=== PATIENT | male | born 1985 | race Caucasian/White ===

== ENCOUNTER 2022-06-02 08:56 | Inpatient (IN) ==
[2022-06-02] MEDS ORDERED: ONDANSETRON 4 MG/2 ML VIAL IV STA (09:30)
[2022-06-02 09:42] LABS: Basophils % 0.3 % (0.0-0.8); Eosinophils # 0.1 10*3/uL (0.0-0.87); Eosinophils % 1.1 % (0.00-10.9); Hematocrit 47.7 VOL% (42.0-52.0); Hemoglobin 16.4 GM/DL (14.0-18.0); Immature Granulocytes % 0.7 %; Immature Granulocytes Absolute 0.08 #; Lymphocytes # 2.1 10*3/uL (1.4-4.0); Lymphocytes % 19.1 % (21.2-54.2); Mean Corpuscular HGB Conc 34.4 GM/DL (32-36); Mean Corpuscular Volume 90.5 FL (87-102); Mean Platelet Volume 9.9 FL (9.6-12.0); Monocytes # 0.7 10*3/uL (0.11-0.8); Monocytes % 6.5 % (1.7-12.7); Neutrophils % 72.3 % (38.7-73.9); Platelet Count 251 T/CUMM (130-400); Red Blood Count 5.27 MC/CUMM (3.8-5.5); Red Cell Distribution Width 12.7 % (9.3-17.3); White Blood Count 10.8 T/CUMM (4-12)
[2022-06-02 10:13] LABS: Albumin 3.9 G/DL (3.4-5.0); Bilirubin,Total 0.9 MG/DL (0.20-1.00); Calcium 9.4 MG/DL (8.5-10.1); Osmolality,Calculated 275.7 MOS/KG (273-304); Potassium 3.9 MMOL/L (3.5-5.1); Total Protein 7.8 G/DL (6.4-8.2)
[2022-06-02 11:10] LABS: Protein,Urine Negative (Negative); Urine Appearance Clear (Clear); Urine Color Yellow (Yellow)
[2022-06-02 11:11] LABS: Bilirubin,Urine Negative (Negative); Blood, Urine Negative (Negative); Glucose,Urine (UA) Negative (Negative); Ketones,Urine Negative (Negative); Nitrite,Urine Negative (Negative); Urine Urobilinogen 0.2 eU/dL (<2.0)
[2022-06-02 11:19] LABS: Mucus,Urine Occasional /LPF (Occasional); RBC,Urine 1 /HPF (0-4)
[2022-06-02] MEDS ORDERED: TISSUE ADHESIVE 1 EACH APPLICATOR TOP ONE (12:19)
[2022-06-02] MEDS ORDERED: BUPIVACAINE MPF 0.25% 10 ML VIAL ONE (12:19)
[2022-06-02] MEDS ORDERED: propofoL 200 MG/20 ML VIAL IV ONE (12:22)
[2022-06-02] MEDS ORDERED: LIDOCAINE 2% 5 ML VIAL ONE (12:22)
[2022-06-02] MEDS ORDERED: ROCURONIUM 50 MG/5 ML VIAL IV ONE (12:22)
[2022-06-02] MEDS ORDERED: MIDAZOLAM 2 MG/2 ML VIAL ONE (12:22)
[2022-06-02] MEDS ORDERED: SUCCINYLCHOLINE 200 MG/10 ML VIAL ONE (12:22)
[2022-06-02] MEDS ORDERED: fentaNYL 100 MCG/2 ML VIAL ONE ×2 (12:22→13:01)
[2022-06-02] MEDS ORDERED: LACTATED RINGERS 1,000 ML IV SCH (12:30)
[2022-06-02] MEDS ORDERED: LIDOCAINE 2%/EPI 20 ML VIAL ONE (12:34)
[2022-06-02] MEDS ORDERED: PHENYLEPHRINE 1 MG/10 ML SYRINGE IV ONE (13:08)
[2022-06-02] MEDS ORDERED: SEVOFLURANE 1 UNIT/15 MINUTE INH ONE (13:08)
[2022-06-02] MEDS ORDERED: SUGAMMADEX 200 MG/2 ML VIAL IV ONE (13:30)
[2022-06-02] MEDS ORDERED: KETOROLAC 30 MG/1 ML VIAL ONE (13:33)
[2022-06-02] MEDS ORDERED: LACTATED RINGERS 1,000 ML IV ONE (13:57)
[2022-06-02] MEDS: LACTATED RINGERS 1,000 ML IV SCH ×2 (14:15→23:37)
[2022-06-02] MEDS ORDERED: MEPERIDINE 25 MG/1 ML VIAL ONE (14:21)
[2022-06-02] MEDS ORDERED: HYDROmorphone 1 MG/1 ML SYRINGE IV PRN ×3 (14:25→14:58)
[2022-06-02] MEDS ORDERED: diphenhydrAMINE 50 MG/1 ML VIAL IV PRN (14:25)
[2022-06-02] MEDS ORDERED: ONDANSETRON 4 MG/2 ML VIAL IV PRN ×2 (14:25→14:58)
[2022-06-02] MEDS ORDERED: PROMETHAZINE INJ 25 MG in SODIUM CHLORIDE 0.9% 50 ML IV PRN (14:25)
[2022-06-02] MEDS: MEPERIDINE 25 MG/1 ML VIAL IV PRN ×2 (14:25→14:45)
[2022-06-02] MEDS ORDERED: PROMETHAZINE 25 MG/1 ML VIAL ONE (14:42)
[2022-06-02] MEDS ORDERED: BISACODYL 5 MG TABLET PO PRN (14:58)
[2022-06-02] MEDS ORDERED: ACETAMINOPHEN 325 MG TABLET PO PRN (14:58)
[2022-06-02] MEDS ORDERED: KETOROLAC 30 MG/1 ML VIAL IV PRN (15:07)
[2022-06-02] MEDS: PIPERACILLIN/TAZOBACTAM 3,375 MG in SODIUM CHLORIDE 0.9% 100 ML IV SCH ×2 (15:44→19:35)
[2022-06-03] MEDS: PIPERACILLIN/TAZOBACTAM 3,375 MG in SODIUM CHLORIDE 0.9% 100 ML IV SCH (02:47)
[2022-06-03 05:18] LABS: Basophils % 0.2 % (0.0-0.8); Eosinophils # 0.1 10*3/uL (0.0-0.87); Eosinophils % 0.6 % (0.00-10.9); Hematocrit 43.9 VOL% (42.0-52.0); Hemoglobin 14.7 GM/DL (14.0-18.0); Immature Granulocytes % 0.8 %; Immature Granulocytes Absolute 0.07 #; Lymphocytes # 1.9 10*3/uL (1.4-4.0); Lymphocytes % 21.6 % (21.2-54.2); Mean Corpuscular HGB Conc 33.5 GM/DL (32-36); Mean Corpuscular Volume 92.6 FL (87-102); Mean Platelet Volume 9.9 FL (9.6-12.0); Monocytes # 0.7 10*3/uL (0.11-0.8); Monocytes % 8.3 % (1.7-12.7); Neutrophils % 68.5 % (38.7-73.9); Platelet Count 208 T/CUMM (130-400); Red Blood Count 4.74 MC/CUMM (3.8-5.5); White Blood Count 8.6 T/CUMM (4-12)
[2022-06-03] MEDS: LACTATED RINGERS 1,000 ML IV SCH (06:39)
[2022-06-03 07:29] VITALS: BP 134/62
[2022-06-03] MEDS ORDERED: PANTOPRAZOLE 40 MG TABLET PO SCH (09:00)
== END 2022-06-03 11:25 | disposition home or self-care (01) | DRG 342 ==
LOC: N.ED 08:56 → N.3E 12:20
PROVIDERS: ADMIT Surgery; ATTEND Surgery